=== PATIENT | male | born 2000 | race Caucasian/White ===

== ENCOUNTER 2022-10-06 11:39 | Emergency (ER) | payer MEDICAID, SELFPAY ==
[2022-10-06 11:42] VITALS: BP 127/87; PULSE 102; RESP 18; TEMP 36.8; O2SAT 96; BMI 22.1
--- NOTE | 2022-10-06 11:47 | CTR_ITS ---
PROCEDURE INFORMATION: Exam: CT Head Without Contrast Exam date and time: 10/06/2022 12:13 PM Age: 21 years old Clinical indication: Injury or trauma; Fall; Blunt trauma (contusions or hematomas); Without loss of consciousness; Additional info: Fall head trauma pain TECHNIQUE: Imaging protocol: Computed tomography of the head without contrast. Radiation optimization: All CT scans at this facility use at least one of these dose optimization techniques: automated exposure control; mA and/or kV adjustment per patient size (includes targeted exams where dose is matched to clinical indication); or iterative reconstruction. REPORTING DATA: Count of CT and Cardiac NM exams in prior 12 months: This patient has received 0 known CTs and 0 known cardiac nuclear medicine studies in the 12 months prior to the current study. COMPARISON: No relevant prior studies available. RADIATION DOSE METRICS: Total DLP (mGy-cm): 1100.38 FINDINGS: Brain: Normal. No hemorrhage. No space-occupying masses or areas of mass effect. No edema or midline shift. Cortical sulci are unremarkable for age. Cerebral ventricles: No ventriculomegaly. Paranasal sinuses: Visualized sinuses are unremarkable. No fluid levels. Mastoid air cells: Visualized mastoid air cells are well aerated. Bones/joints: Unremarkable. Soft tissues: Unremarkable. CT/CT head wo con* [id number] IMPRESSION: Negative CT examination of the head. No acute intracranial abnormalities.
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
[2022-10-06] MEDS: lidocaine 4% cream 5 gm 1 APPLIC TOPICAL (12:08)
[2022-10-06] MEDS: lidocaine 1% INJ 10 mL (per mL) INJECTION (13:06)
[2022-10-06 13:10] VITALS: BP 137/70; RESP 16; O2SAT 98
[2022-10-06 13:16] VITALS: BP 127/70; PULSE 78; O2SAT 98
--- NOTE | 2022-10-09 13:53 | DCPLANNER ---
Addendum entered by Yvonne Smiley 11/01/22 11:01: Patient did not attend appointment Original Note: pbx manager called patient due to no primary care physician - patient wanted nurse outreach case manager to get patient established with a provider. pbx manager called [facility] Family medicine - gave clinic patients information. A follow up appointment was scheduled for Friday, October 30, 2022 at 10:[address] Alaniz. Patient is aware of appointment.
--- NOTE | 2022-10-13 00:14 | PC.NURSE ---
Pt returned to have stitches removed, had already taken all but two out. Two remaining stitches removed without difficulty
== END 2022-10-06 13:17 | disposition home or self-care (01) ==
PROVIDERS: Emergency Provider Emergency Medicine
DX: S01.81XA Laceration without foreign body of other part of head, initial encounter (principal); Y08.89XA Assault by other specified means, initial encounter
CPT/HCPCS: 12011; 70450; 99284

== ENCOUNTER 2022-11-20 22:59 | Emergency (ER) | payer BC, MEDICAID, SELFPAY ==
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
[2022-11-20 23:10] VITALS: BP 132/84; PULSE 97; RESP 18; TEMP 36.6; O2SAT 98; BMI 18.7
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
[2022-11-20] MEDS: bacitracin ointment Pkt 1 EACH TOPICAL (23:55)
[2022-11-21 00:02] VITALS: BP 132/84; PULSE 97; RESP 18; TEMP 36.6; O2SAT 98
--- NOTE | 2022-11-21 08:45 | DCPLANNER ---
qc manager called patient due to no primary care physician - no answer at this time.
== END 2022-11-21 00:02 | disposition home or self-care (01) ==
PROVIDERS: Emergency Provider Nurse Practitioner Family
DX: S60.414A Abrasion of right ring finger, initial encounter (principal); S60.416A Abrasion of right little finger, initial encounter; W23.0XXA Caught, crushed, jammed, or pinched between moving objects, initial encounter; Y92.512 Supermarket, store or market as the place of occurrence of the external cause
CPT/HCPCS: 73130; 99283